=== PATIENT | male | born 2005 | race Caucasian/White ===

== ENCOUNTER 2025-03-18 20:35 | Emergency (ER) | payer OTHER, SELFPAY ==
[2025-03-18] VITALS (7 sets, daily range): BP systolic 120–155; BP diastolic 65–77; PULSE 70–91; RESP 16–22; O2SAT 96–98
--- NOTE | 2025-03-18 20:30 | RT.EKG_ITS ---
APPROVED REPORT Exam: Resting ECG Reason for Exam: syncope Patient Location: E HR:78 bpm ECG Measurements Heart Rate 78 AXIS FL 119 P 60 QRSd 106 QRS 68 QT 362 T 25 QTc 412 Conclusion Sinus rhythm...normal P axis, V-rate 60- 99 Ventricular premature complex...V complex w/ short R-R interval
--- NOTE | 2025-03-18 21:00 | DI.CT_ITS ---
Exam(s) CT HEAD WO EXAM: CT HEAD WO CLINICAL HISTORY: Syncope. TECHNIQUE: Imaging Protocol: Axial computed tomography images with coronal and sagittal reformatted images were created and reviewed COMPARISON: No exams were available for comparison FINDINGS: There are no skull fractures. There is a round calcific density in the scalp high left parietal region. Either calcification or BB. There is no surrounding hemorrhage nor edema. There is no fluid in the visualized paranasal sinuses. There is no evidence of intracranial hemorrhage, mass effect, or shift of midline structures. There are no extra-axial fluid collections. The ventricles are not enlarged or shifted and there is no blood within the ventricular system nor within the basal cisterns. IMPRESSION: No acute intracranial findings on this noninfused CT scan of the brain. Parietal scalp region radiopaque foreign body measUring approximately 3-4 mm which is probably a BB. This does not appear acute. Report called by myself to ER physician 03/18/2025 at 9:35 p.m. RADIATION DOSE DELIVERED: 944.61mGy.cm Total DLP DATA REPOSITORY: All CT scans at this facility are submitted to the National Radiology Data Registry (NRDR) Dose Index Registry (DIR) with the [employer] ([employer]). RADIATION OPTIMIZATION: All CT scans at this facility use at least one of these dose optimization techniques: automated exposure control; mA and/or kV adjustment per patient size (includes targeted exams where dose is matched to clinical indication); or iterative reconstruction.
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
[2025-03-18] MEDS: Normal Saline 1,000 ML 1000 ML IV (21:20)
[2025-03-18 21:35] LABS: Abs Immature Grans 0.00 10^3/uL (0.0-0.06); HCT 37.4 % (40.0-50.0); HGB 13.5 g/dL (13.5-17.5); Immature Grans % 0.0 %; MCH 32.7 pg (27.0-33.0); MCHC 36.1 % (32.0-36.0); MCV 91 fL (80-95); MPV 10.4 fL (8.0-11.0); Platelet Count 239 10^3/uL (130-400); RBC 4.13 10^6/uL (4.36-5.78); RDW 11.0 % (11.8-14.1); RDW-SD 37.0 fL; WBC 4.80 10^3/uL (4.4-10.8)
[2025-03-18 22:02] LABS: ALT 23 U/L (16-63); AST 14 U/L (15-37); Albumin 3.9 g/dL (3.4-5.0); Alkaline Phosphatase 65 U/L (46-116); Anion Gap 9.7 mmol/L (3-11); BUN 18 mg/dL (7-18); Bilirubin, Total 0.6 mg/dL (0.2-1.0); CO2 26.3 mmol/L (21.0-32.0); Calcium 8.8 mg/dL (8.5-10.1); Chloride 106 mmol/L (98-107); Estimated GFR 130.74 (mL/min/1.73m2); Glucose 141 mg/dL (74-106); Magnesium 1.8 mg/dL (1.8-2.4); Potassium 3.4 mmol/L (3.5-5.1); Sodium 142 mmol/L (136-145); Total Protein 6.9 g/dL (6.4-8.2); Troponin I 5 ng/L (<or=76)
== END 2025-03-18 22:26 | disposition home or self-care (01) ==
PROVIDERS: Emergency Provider Emergency Medicine Emergency Medical Services
DX: T67.5XXA Heat exhaustion, unspecified, initial encounter (principal); R55 Syncope and collapse; R86.0 Abnormal level of enzymes in specimens from male genital organs
CPT/HCPCS: 36415; 80053; 93005; 99285; 70450; 83735; 84484; 85025; 93010; 99284